=== PATIENT | female | born 1950 | race Caucasian/White ===

== ENCOUNTER 2018-07-26 11:10 | Emergency (ER) | payer MEDICARE, MEDICAID ==
--- OUTSIDE RECORDS SUMMARY | 2018-07-26 11:28 | XMS REPORT | Continuity of Care Document ---
:1950 External Reference #:[id number] Author Name Bola Bryan, N.Marisa. Address [address] [place] [address] Care Team Providers Name Role Phone Bola Bryan NIke Care Team Information Director [employer] Unavailable Payers Type Date Identification Numbers Payment Provider Subscriber Policy Number: [id number] [employer] Bárbara Chowdhury [place] PayID: [id number] [address] [address] [place] [address] Effective: 2015 Policy Number: Medicaid ### >12 Bárbara Chowdhury [place] [id number] PayID: [id number] [address] [place] [address] Advance Directives Description No Information Available Problems Date Description Provider Status Onset: 08/06/2010 Pure hypercholesterolemia Active Onset: 03/21/2015 Chronic obstructive lung disease Bola Bryan, N.P. Active Onset: 03/21/2015 Tobacco user Bola Bryan, N.P. Active Onset: 03/21/2015 Depressive disorder Bola Bryan, N.P. Active Onset: 03/21/2015 Anxiety Bola Bryan, N.P. Active Family History Date Family Member(s) Problem(s) Comments Father due to Heart Disease () Mother due to Stroke () Siblings 11 First Brother due to Accident, Motor Vehicle () Second Brother due to Accident, Motor Vehicle () First Sister due to Cancer, Cervix () Second Sister due to SC () Third Sister due to Cancer, Unspecified () - thyroid Fourth Sister due to Cancer, Kidney () Fifth Sister due to Cancer () Social History Type Date Description Comments Sex Unknown Marital Status Lives With Spouse Occupation Homemaker ETOH Use Rarely consumes alcohol Tobacco Use Start: Unknown Patient is a current smoker, smokes every 1 ppd day Smoking Status Reviewed: 12/07/17 Patient is a current smoker, smokes every 1 ppd day Allergies, Adverse Reactions, Alerts Description No Known Drug Allergies Medications Medication Date Status Form Strength Qnty SIG Indications Ordering Provider Fluoxetine HCL 08/05/ Active Capsules 40mg 30cap take one Irvin, 2015 s capsule Mashelle, by mouth N.P. every day Proair HFA 07/30/ Active Aerosol 108(90Base 8.500 2 puffs Irvin, 2014 ) mcg/Act gm four Mashelle, times a N.P. day as needed Lorazepam 10/23/ Active Tablets 1mg 90tab 1 by Irvin, 2014 s mouth Mashelle, three N.P. times a day please fill early for vacation Breo Ellipta 02/01/ Active Aerosol 100-25mcg/ 60uni Inhale Irvin, 2013 Inh ts One puff Mashelle, By Mouth N.P. Every Day Simvastatin 02/26/ Active Tablets 40mg 90tab 1 by Irvin, 2010 s mouth Mashelle, every day N.P. Oxybutynin 09/08/ Active Tablets 5mg 180ta 1 by Irvin 2010 bs mouth Mashelle, twice a N.P. day Acyclovir 08/06/ Active Tablets 400mg 180ta 1 by Irvin 2009 bs mouth Mashelle, twice a N.P. day Aspir-81 07/31/ Active Tablets DR 81mg 30tab 1 po qd Irvin 2009 s Mashelle, N.P. Shingrix 11/23/ Hx Suspension 50mcg Irvin, 2017 - Rec Mashelle, 12/07/ N.P. 2018 Pneumovax 23 07/26/ Hx Injection 25mcg/0.5M Irvin, 2016 - L Mashelle, 12/07/ N.P. 2018 Chantix 11/26/ Hx Tablets 1mg 60tab 1 by Irvin 2015 - s mouth Mashelle, 06/08/ twice a N.P. 2016 day Chantix 10/28/ Hx Tablets 0.5mg X 11 1tabs as Irvin, Starting Month 2015 - & 1 mg X directed Bola Spike N.P. 2016 Levofloxacin 08/29/ Hx Tablets 500mg 10tab 1 by Irvin, 2016 - s mouth Mashelle, 10/28/ every day N.P. 2016 x 10 days Albuterol 07/30/ Hx Syrup 2mg/5ML 2 puffs Irvin, Sulfate 2014 - four Mashelle, 07/30/ times a N.P. 2014 day Zoloft 10/23/ Hx Tablets 100mg 90tab 1 by Irvin, 2015 - s mouth Mashelle, 08/05/ every day N.P. 2015 Alprazolam 09/29/ Hx Tablets 1mg 60tab 1 by Irvin, 2014 - s mouth Mashelle, 10/23/ three N.P. 2015 times a day Ibuprofen 09/29/ Hx Tablets 600mg 30tab 1 po tid Irvin, 2014 - s with food Bola, 06/08/ N.P. 2015 Diazepam 02/14/ Hx Tablets 5mg 90tab 1 po q hs Irvin, 2012 - s Mashelle, 09/29/ N.P. 2014 Ambien 10/17/ Hx Tablets 5mg 30tab 1 po q hs Irvin, 2012 - s prn Mashelle, 11/05/ N.P. 2014 Keflex 03/29/ Hx Capsules 500mg 28cap 1 po qid Irvin, 2011 - s x 7 days Mashelle, 04/07/ N.P. 2011 Hydroxyzine 03/04/ Hx Capsules 50mg 15cap 1 po tid [facility], Pamoate 2011 - s prn itch Mashelle, 03/29/ N.P. 2011 Medrol Dosepak 02/22/ Hx Tablets 4mg 1PK as Irvin, 2011 - directed Mashelle, 03/04/ N.P. 2011 Fluticasone 02/22/ Hx Cream 0.05% 30gm apply to Irvin Propionate 2011 - rash bid Mashelle, 02/19/ N.P. 2014 Chantix 02/01/ Hx Tablets 1mg 60tab 1 po bid Irvin, 2012 - s Mashelle, 10/04/ N.P. 2012 Spiriva 12/07/ Hx Capsules 18mcg 30cap 1 inhale [facility]vin Handihaler 2011 - s qd Mashelle, 02/15/ N.P. 2013 Chantix 11/24/ Hx Tablets 0.5mg 30tab 1 po qd Irvin, 2011 - s Mashelle, 02/01/ N.P. 2012 Proventil HFA 11/17/ Hx Aerosol 108(90Base 1unit 2 puffs Irvin, 2011 - ) mcg/ac s four Mashelle, 07/30/ times a N.P. 2015 day Chantix 08/18/ Hx Tablets 1mg 60tab 1 po bid Irvin, 2010 - s [place], 11/24/ N.P. 2011 Wellbutrin XL 07/28/ Hx Tablets ER 150mg 30tab 1 po qd Irvin, 2010 - 24HR s [place], 08/18/ N.P. 2010 Chantix Starter 07/28/ Hx #1Pack 1Pack as Irvin, Pack 2010 - directed Mashelle, 08/18/ N.P. 2010 Simvastatin 02/26/ Hx Tablets 40mg take one Irvin, 2010 - tablet by Bola, 02/26/ mouth at N.P. 2010 bedtime Zoloft 11/12/ Hx Tablets 50mg 90tab 1 by Irvin, 2010 - s mouth Mashelle, 10/23/ every day N.P. 2014 Oxybutynin 08/06/ Hx Tablets 5mg 90tab 1 po qd [place], Chloride 2009 - s Mashelle, 08/06/ N.P. 2009 Alendronate 08/06/ Hx Tablets 70mg 12tab 1 po q [place], Sodium 2009 - s week Masbecky, 08/31/ N.P. 2017 Xanax 08/06/ Hx Tablets 0.5mg 30tab 1 po tid Irvin, 2009 - s [place], 10/17/ N.P. 2013 Oxybutynin 08/06/ Hx Tablets ER 10mg 90tab 1 po qd [place], Chloride ER 2009 - 24HR s Mashelle, 09/08/ N.P. 2010 Amitriptyline 07/31/ Hx Tablets 10mg 30tab 1 po qhs [place], HCL 2009 - s Bola, 08/06/ N.P. 2009 Simvastatin 07/31/ Hx Tablets 80mg 90tab 1 po qd Irvin 2009 - s Bola, 02/26/ N.P. 2010 Citalopram 07/31/ Hx Tablets 40mg 90tab 1 by Dilip Bryanbromide 2009 - mouth Bola, 10/23/ every day N.P. 2014 Immunizations CPT Code Status Date Vaccine Lot # [id number] Given 05/09/2018 Influenza Vac, 3 Yrs & Older, Quadrivalent, [id number] [place] [address] Given 07/26/2017 Pneumococcal 23 Immunization Adult Or Immunosuppressed Patient 63072 Given 07/26/2017 Influenza Vac, 3 Yrs & Older, Quadrivalent, [id number] Split, Im Use 07747 Given 08/05/2016 Tdap (Adacel) Ages 7 And Above Only [id number] 28069 Given 06/08/2016 Influenza Vac, 3 Yrs & Older, Quadrivalent, [id number] Split, [place] Use 01395 Given 06/08/2016 Prevnar 13 Pneumococal Conjugate Vaccine [id number] 92280 Given 07/24/2015 Influenza Vac, 3 Yrs & Older, Quadrivalent, Split, Im Use Q2038 Given 05/31/2014 Fluzone Trivalent Immunization [id number] Q2038 Given 07/27/2013 Fluzone Trivalent Immunization 71827 Given 06/30/2012 Pneumococcal 23 Immunization Adult Or Immunosuppressed Patient Q2038 Given 06/16/2012 Fluzone Trivalent Immunization [id number] Q2038 Given 06/02/2011 Fluzone Trivalent Immunization [id number] 53490 Given 08/06/2010 Afluria Or Fluvirin Flu Vac Intramuscular [id number] Vital Signs Date Vital Result Comment 07/25/2018 3:02pm Body Temperature 97.7 F Weight 104.50 lb Heart Rate 104 /min BP Systolic 142 mmHg BP Diastolic 90 mmHg O2 % BldC Oximetry 96 % 05/09/2018 10:53am Body Temperature 97.7 F Weight 106.25 lb Heart Rate 83 /min BP Systolic 134 mmHg BP Diastolic 82 mmHg O2 % BldC Oximetry 93 % 12/07/2017 1:25pm Weight 106.00 lb 12/07/2017 1:05pm Body Temperature 98.1 F Weight 106.00 lb Heart Rate 78 /min BP Systolic 138 mmHg BP Diastolic 84 mmHg Height 59.5 inches 4'11.50" O2 % BldC Oximetry 94 % BMI (Body Mass Index) 21.0 kg/m2 07/26/2017 10:29am Body Temperature 97.5 F Weight 103.38 lb Heart Rate 83 /min BP Systolic 134 mmHg BP Diastolic 87 mmHg O2 % BldC Oximetry 94 % 03/16/2017 1:29pm Body Temperature 98.1 F Weight 99.38 lb Heart Rate 74 /min BP Systolic 146 mmHg BP Diastolic 77 mmHg O2 % BldC Oximetry 97 % 12/04/2016 11:12am Body Temperature 97.2 F Weight 104.00 lb Heart Rate 99 /min BP Systolic 129 mmHg BP Diastolic 78 mmHg Height 59 inches 4'11" O2 % BldC Oximetry 94 % BMI (Body Mass Index) 21.0 kg/m2 08/31/2016 11:42am Body Temperature 97.7 F Weight 108.00 lb Heart Rate 83 /min BP Systolic 141 mmHg BP Diastolic 72 mmHg O2 % BldC Oximetry 95 % 08/05/2016 10:34am Body Temperature 97.7 F Weight 109.00 lb Heart Rate 90 /min BP Systolic 127 mmHg BP Diastolic 77 mmHg O2 % BldC Oximetry 95 % 06/08/2016 10:32am Body Temperature 97.3 F Weight 111.25 lb Heart Rate 80 /min BP Systolic 126 mmHg BP Diastolic 72 mmHg O2 % BldC Oximetry 96 % 01/28/2016 10:44am Body Temperature 97.7 F Weight 111.50 lb Heart Rate 84 /min BP Systolic 127 mmHg BP Diastolic 76 mmHg O2 % BldC Oximetry 95 % 10/29/2015 10:47am Body Temperature 97.9 F Weight 112.38 lb Heart Rate 97 /min 78-After Treatment BP Systolic 149 mmHg BP Diastolic 82 mmHg O2 % BldC Oximetry 93 % 91-After Treatment 08/29/2015 10:52am Body Temperature 97.9 F Weight 111.25 lb Heart Rate 93 /min BP Systolic 127 mmHg BP Diastolic 80 mmHg O2 % BldC Oximetry 96 % 07/24/2015 10:03am Body Temperature 97.7 F Weight 113.00 lb Heart Rate 86 /min BP Systolic 149 mmHg BP Diastolic 86 mmHg O2 % BldC Oximetry 96 % 03/21/2015 10:37am Body Temperature 97.9 F Weight 112.12 lb Heart Rate 86 /min BP Systolic 134 mmHg BP Diastolic 81 mmHg O2 % BldC Oximetry 95 % 02/19/2015 9:56am Body Temperature 97.3 F Weight 112.38 lb Heart Rate 84 /min BP Systolic 119 mmHg BP Diastolic 77 mmHg O2 % BldC Oximetry 96 % 12/06/2014 1:58pm Body Temperature 97.9 F Weight 114.00 lb Heart Rate 80 /min BP Systolic 118 mmHg BP Diastolic 77 mmHg O2 % BldC Oximetry 97 % 11/05/2014 11:32am Body Temperature 96.5 F Weight 112.25 lb Heart Rate 89 /min BP Systolic 120 mmHg BP Diastolic 76 mmHg O2 % BldC Oximetry 95 % 10/23/2014 1:10pm Weight 117.38 lb Heart Rate 77 /min BP Systolic 132 mmHg BP Diastolic 85 mmHg O2 % BldC Oximetry 98 % 05/31/2014 2:37pm Body Temperature 97.5 F Weight 121.50 lb Heart Rate 78 /min BP Systolic 131 mmHg BP Diastolic 78 mmHg O2 % BldC Oximetry 96 % 05/02/2014 10:28am Body Temperature 98.4 F Weight 125.50 lb Heart Rate 85 /min BP Systolic 144 mmHg BP Diastolic 84 mmHg Respiratory Rate 20 /min 02/15/2014 10:34am Body Temperature 97.5 F Weight 127.38 lb Heart Rate 79 /min BP Systolic 130 mmHg BP Diastolic 83 mmHg O2 % BldC Oximetry 95 % 02/01/2014 10:56am Body Temperature 98.4 F Weight 132.38 lb Heart Rate 95 /min BP Systolic 128 mmHg BP Diastolic 76 mmHg O2 % BldC Oximetry 96 % 10/25/2013 11:04am Body Temperature 96.1 F Weight 140.25 lb Heart Rate 107 /min BP Systolic 118 mmHg BP Diastolic 73 mmHg O2 % BldC Oximetry 95 % 09/29/2013 9:18am Body Temperature 97.6 F Weight 142.12 lb Heart Rate 74 /min BP Systolic 120 mmHg BP Diastolic 60 mmHg O2 % BldC Oximetry 94 % 07/27/2013 11:05am Body Temperature 98.2 F Weight 138.00 lb Heart Rate 81 /min BP Systolic 128 mmHg BP Diastolic 72 mmHg O2 % BldC Oximetry 97 % 02/14/2013 1:57pm Body Temperature 96.1 F Weight 139.00 lb Heart Rate 80 /min BP Systolic 124 mmHg BP Diastolic 70 mmHg O2 % BldC Oximetry 95 % 10/04/2012 10:12am Body Temperature 96.2 F Weight 141.00 lb Heart Rate 83 /min BP Systolic 112 mmHg BP Diastolic 62 mmHg O2 % BldC Oximetry 93 % 06/16/2012 8:42am Body Temperature 97.7 F Weight 142.25 lb Heart Rate 94 /min BP Systolic 124 mmHg BP Diastolic 72 mmHg O2 % BldC Oximetry 96 % 04/07/2012 9:54am Body Temperature 97.3 F Weight 144.38 lb Heart Rate 78 /min BP Systolic 132 mmHg BP Diastolic 70 mmHg O2 Saturation Level with Exercise 97 % 03/29/2012 1:49pm Body Temperature 98.0 F Weight 144.25 lb Heart Rate 84 /min BP Systolic 136 mmHg BP Diastolic 89 mmHg O2 % BldC Oximetry 93 % 03/04/2012 9:10am Body Temperature 97.9 F Weight 147.12 lb Heart Rate 70 /min BP Systolic 145 mmHg BP Diastolic 78 mmHg O2 % BldC Oximetry 94 % 02/23/2012 9:52am Body Temperature 97.5 F Weight 142.50 lb Heart Rate 83 /min BP Systolic 160 mmHg BP Diastolic 85 mmHg O2 % BldC Oximetry 95 % 02/02/2012 8:56am Body Temperature 97.7 F Weight 147.00 lb Heart Rate 81 /min BP Systolic 137 mmHg BP Diastolic 86 mmHg O2 % BldC Oximetry 92 % 12/08/2011 9:50am Body Temperature 97.5 F Weight 143.50 lb Heart Rate 79 /min BP Systolic 134 mmHg BP Diastolic 85 mmHg O2 % BldC Oximetry 96 % 11/25/2011 1:06pm Body Temperature 97.5 F Weight 142.00 lb Heart Rate 70 /min BP Systolic 111 mmHg BP Diastolic 70 mmHg O2 Saturation Level with Exercise 94 % 11/18/2011 1:06pm Body Temperature 97.5 F Weight 141.38 lb Heart Rate 76 /min BP Systolic 129 mmHg BP Diastolic 75 mmHg O2 Saturation Level with Exercise 95 % 11/03/2011 9:04am Body Temperature 97.4 F Weight 149.00 lb Heart Rate 88 /min BP Systolic 120 mmHg BP Diastolic 80 mmHg O2 Saturation Level with Exercise 95 % 08/18/2011 10:44am Body Temperature 98.2 F Weight 140.00 lb Heart Rate 62 /min BP Systolic 110 mmHg BP Diastolic 63 mmHg O2 Saturation Level with Exercise 94 % 08/18/2011 10:43am Weight 140.00 lb 07/28/2011 10:31am Body Temperature 97.8 F Weight 138.00 lb Heart Rate 80 /min BP Systolic 130 mmHg BP Diastolic 74 mmHg O2 % BldC Oximetry 95 % 06/02/2011 8:48am Body Temperature 97.4 F Weight 138.00 lb Heart Rate 74 /min BP Systolic 138 mmHg BP Diastolic 72 mmHg O2 % BldC Oximetry 96 % 02/26/2011 10:56am Weight 135.00 lb Heart Rate 68 /min BP Systolic 132 mmHg BP Diastolic 62 mmHg O2 % BldC Oximetry 95 % 11/27/2010 9:04am Body Temperature 98.4 F Weight 142.00 lb Heart Rate 79 /min BP Systolic 102 mmHg BP Diastolic 70 mmHg O2 % BldC Oximetry 93 % 11/12/2010 3:43pm Weight 138.00 lb Heart Rate 76 /min BP Systolic 128 mmHg BP Diastolic 70 mmHg O2 % BldC Oximetry 93 % 08/18/2010 3:18pm Weight 146.00 lb Heart Rate 76 /min BP Systolic 138 mmHg BP Diastolic 70 mmHg Height 59 inches 4'11" O2 % BldC Oximetry 92 % BMI (Body Mass Index) 29.5 kg/m2 08/06/2010 1:17pm Body Temperature 97.6 F Weight 143.00 lb Heart Rate 69 /min BP Systolic 102 mmHg BP Diastolic 60 mmHg Respiratory Rate 20 /min Height 59 inches 4'11" O2 % BldC Oximetry 94 % BMI (Body Mass Index) 28.9 kg/m2 Results Test Date Facility Test Result H/L Range Note Comprehensive Met Panel-[facility] 12/07/2017 [facility] Sodium 136 mmol/L 135- 146 1, 2 Potassium 4.4 mmol/L 3.5-5.2 Chloride# 98 mmol/L 97-110 3 Carbon Dioxide 28 mmol/L 24-34 Glucose 100 mg/dL 70-105 BUN 8 mg/dL 6-26 Creatinine 0.7 mg/dL 0.5-1.4 Calcium 9.8 mg/dL 8.5-10.2 Total Protein 7.5 g/dL 6.0-8.0 Albumin 4.6 g/dL 3.6-4.9 Globulin 2.9 g/dL 2.0-3.5 A/G Ratio 1.6 Ratio 1.0-2.2 Total Bilirubin 0.6 mg/dL 0.1-1.3 Alkaline Phosphatase 79 U/L 24-140 Alt 10 U/L 3-42 Ast 13 U/L 8-42 Breanne Egfr >60 >60 4 Non Breanne Egfr >60 >60 5 Anion Gap 10 mmol/L 5-15 6 Lipid 12/07/2017 [facility] Cholesterol 238 mg/dL High 50-199 Triglycerides 127 mg/dL 30-200 HDL 81 mg/dL 35-85 7 Chol/ HDL Ratio 2.9 ratio Low 3.7-5.6 VLDL 25 mg/dL 2-29 LDL (Calc) 131 mg/dL High 20-99 8 Lipid 03/16/2017 [facility] Cholesterol 214 mg/dL High 50-199 9 Triglycerides 125 mg/dL 30-200 HDL 68 mg/dL 35-85 10 Chol/ HDL Ratio 3.1 ratio Low 3.7-5.6 VLDL 25 mg/dL 2-29 LDL (Calc) 121 mg/dL High 20-99 11 Comprehensive Met Panel-[facility] 03/16/2017 [facility] Sodium 138 mmol/L 135- 146 12 Potassium 4.7 mmol/L 3.5-5.2 Chloride# 100 mmol/L 97-110 13 Carbon Dioxide 30 mmol/L 24-34 Glucose 98 mg/dL 70-105 BUN 7 mg/dL 6-26 Creatinine 0.7 mg/dL 0.5-1.4 Calcium 9.7 mg/dL 8.5-10.2 Total Protein 7.2 g/dL 6.0-8.0 Albumin 4.4 g/dL 3.6-4.9 Globulin 2.8 g/dL 2.0-3.5 A/G Ratio 1.6 Ratio 1.0-2.2 Total Bilirubin 0.4 mg/dL 0.1-1.3 Alkaline Phosphatase 91 U/L 24-140 Alt 11 U/L 3-42 Ast 12 U/L 8-42 Breanne Egfr >60 >60 14 Non Breanne Egfr >60 >60 15 Anion Gap 13 mmol/L 7-16 16 Laboratory test 03/16/2017 [facility] Hepatitis C Virus NONREACTIVE Nonreactive finding Antibody CBC With Auto Diff 03/16/2017 [facility] WBC 7.4 K/uL 4.1-11.0 RBC 5.03 M/uL 4.00-5.40 Hemoglobin 16.1 gm/dL High 12.0-16.0 Hematocrit 48.1 % High 36.0-47.0 MCV 95.6 fL 80.0-97.0 MCH 32.1 pg High 27.0-32.0 MCHC 33.5 g/dL 32.0-36.0 RDW 14.1 % 11.5-14.5 PLT Count 217 K/ul 140-400 Neutrophil 69.7 % 35.0-75.0 Lymphocyte 21.2 % 16.0-52.0 Monocyte 7.0 % 2.0-10.0 Eosinophil 0.9 % 0.0-5.0 Basophil 1.2 % 0.0-4.0 Abs Neutrophils 5.2 K/uL 2.1-8.0 Abs Lymphocytes 1.6 K/uL 0.8-5.5 Abs Monocytes 0.5 K/uL 0.1-1.0 Abs Eosinophils 0.1 K/uL 0.0-0.5 Abs Basophils 0.1 K/uL 0.0-0.3 Laboratory test finding 08/31/2016 [facility] Hemoglobin A1c 5.8 % 4.1-5.9 Comprehensive Metabolic 08/31/2016 [facility] Sodium 137 mmol/L 134-142 (CMP) Potassium 4.8 mmol/L 3.5-5.2 Chloride 102 mmol/L 97-109 Carbon Dioxide 29 mmol/L 24-34 Glucose 104 mg/dL 70-105 BUN 10 mg/dL 6-26 Creatinine 0.7 mg/dL 0.5-1.4 Calcium 9.7 mg/dL 8.5-10.2 Total Protein 7.1 g/dL 6.0-8.0 Albumin 4.5 g/dL 3.6-4.9 Globulin 2.6 g/dL 2.0-3.5 A/G Ratio 1.7 Ratio 1.0-2.2 Total Bilirubin 0.5 mg/dL 0.1-1.3 Alkaline Phosphatase 71 U/L 24-140 Alt 8 U/L 3-42 Ast 12 U/L 8-42 Anion Gap 11 mmol/L 6-14 Breanne Egfr >60 >60 17 Non Breanne Egfr >60 >60 18 Lipid 08/31/2016 [facility] Cholesterol 172 mg/dL 50-199 Triglycerides 84 mg/dL 30-200 HDL 72 mg/dL 35-85 19 Chol/ HDL Ratio 2.4 ratio Low 3.7-5.6 VLDL 17 mg/dL 2-29 LDL (Calc) 83 mg/dL 20-99 20 Lipid 06/08/2016 [facility] Cholesterol 204 mg/dL High 50-199 Triglycerides 90 mg/dL 30-200 HDL 62 mg/dL 35-85 21 Chol/ HDL Ratio 3.3 ratio Low 3.7-5.6 VLDL 18 mg/dL 2-29 LDL (Calc) 124 mg/dL High 20-99 22 Comprehensive Metabolic (CMP) 06/08/2016 [facility] Sodium 136 mmol/L 134- 142 Potassium 4.8 mmol/L 3.5-5.2 Chloride 103 mmol/L 97-109 Carbon Dioxide 26 mmol/L 24-34 Glucose 94 mg/dL 70-105 BUN 11 mg/dL 6-26 Creatinine 0.8 mg/dL 0.5-1.4 Calcium 9.7 mg/dL 8.5-10.2 Total Protein 6.7 g/dL 6.0-8.0 Albumin 4.1 g/dL 3.6-4.9 Globulin 2.6 g/dL 2.0-3.5 A/G Ratio 1.6 Ratio 1.0-2.2 Total Bilirubin 0.4 mg/dL 0.1-1.3 Alkaline Phosphatase 79 U/L 24-140 Alt 12 U/L 3-42 Ast 12 U/L 8-42 Anion Gap 12 mmol/L 6-14 Breanne Egfr >60 >60 23 Non Breanne Egfr >60 >60 24 Laboratory test finding 06/08/2016 [facility] Hemoglobin A1c 5.9 % 4.1-5.9 Laboratory test finding 01/28/2016 [facility] Hemoglobin A1c 6.0 % High 4.1- 5.9 25 Comprehensive Metabolic 01/28/2016 [facility] Sodium 139 mmol/L 134-142 ([facility]) Potassium 4.8 mmol/L 3.5-5.2 Chloride 100 mmol/L 97-109 Carbon Dioxide 31 mmol/L 24-34 Glucose 93 mg/dL 70-105 BUN 11 mg/dL 6-26 Creatinine 0.7 mg/dL 0.5-1.4 Calcium 9.5 mg/dL 8.5-10.2 Total Protein 7.0 g/dL 6.0-8.0 Albumin 4.3 g/dL 3.6-4.9 Globulin 2.7 g/dL 2.0-3.5 A/G Ratio 1.6 Ratio 1.0-2.2 Total Bilirubin 0.5 mg/dL 0.1-1.3 Alkaline Phosphatase 74 U/L 24-140 Alt 9 U/L 3-42 Ast 13 U/L 8-42 Anion Gap 13 mmol/L 6-14 Breanne Egfr >60 >60 26 Non Breanne Egfr >60 >60 27 Lipid 01/28/2016 [facility] Cholesterol 180 mg/dL 50-199 Triglycerides 105 mg/dL 30-200 HDL 60 mg/dL 35-85 28 Chol/ HDL Ratio 3.0 ratio Low 3.7-5.6 VLDL 21 mg/dL 2-29 LDL (Calc) 99 mg/dL 20-99 29 Laboratory test finding 07/29/2015 [facility] Hemoglobin A1c 6.0 % High 4.1- 5.9 30 Comprehensive Metabolic 07/24/2015 [facility] Sodium 139 mmol/L 134-142 31 (CMP) Potassium 4.9 mmol/L 3.5-5.2 Chloride 103 mmol/L 97-109 Carbon Dioxide 31 mmol/L 24-34 Glucose 115 mg/dL High 70-105 BUN 10 mg/dL 6-26 Creatinine 0.8 mg/dL 0.5-1.4 Calcium 9.7 mg/dL 8.5-10.2 Total Protein 6.7 g/dL 6.0-8.0 Albumin 4.2 g/dL 3.6-4.9 Globulin 2.5 g/dL 2.0-3.5 A/G Ratio 1.7 Ratio 1.0-2.2 Total Bilirubin 0.4 mg/dL 0.1-1.3 Alkaline Phosphatase 67 U/L 24-140 Alt 11 U/L 3-42 Ast 14 U/L 8-42 Anion Gap 10 mmol/L 6-14 Breanne Egfr >60 >60 32 Non Breanne Egfr >60 >60 33 Lipid 07/24/2015 [facility] Cholesterol 191 mg/dL 50-199 Triglycerides 113 mg/dL 30-200 HDL 66 mg/dL 35-85 34 Chol/ HDL Ratio 2.9 ratio Low 3.7-5.6 VLDL 23 mg/dL 2-29 LDL (Calc) 102 mg/dL High 20-99 35 CBC With Auto Diff 07/24/2015 [facility] WBC 8.4 K/uL 4.1-11.0 RBC 4.76 M/uL 4.00-5.40 Hemoglobin 15.3 gm/dL 12.0-16.0 Hematocrit 46.6 % 36.0-47.0 MCV 97.9 fL High 80.0-97.0 MCH 32.2 pg High 27.0-32.0 MCHC 32.9 g/dL 32.0-36.0 RDW 13.1 % 11.5-14.5 PLT Count 177 K/ul 140-400 Neutrophil 68.4 % 35.0-75.0 Lymphocyte 22.9 % 16.0-52.0 Monocyte 6.8 % 2.0-10.0 Eosinophil 0.8 % 0.0-5.0 Basophil 1.1 % 0.0-4.0 Abs Neutrophils 5.7 K/uL 2.1-8.0 Abs Lymphocytes 1.9 K/uL 0.8-5.5 Abmon 0.6 K/uL 0.1-1.0 Abs Eosinophils 0.1 K/uL 0.0-0.5 Abs Basophils 0.1 K/uL 0.0-0.3 Laboratory test finding 07/24/2015 [facility] TSH 1.77 uIU/mL 0.35-4.94 CBC With Auto Diff 02/01/2014 [facility] WBC 7.4 K/uL 4.1-11.0 36 RBC 5.09 M/uL 4.00-5.40 Hemoglobin 16.1 gm/dL High 12.0-16.0 Hematocrit 47.5 % High 36.0-47.0 MCV 93.3 fL 80.0-97.0 MCH 31.7 pg 27.0-32.0 MCHC 34.0 g/dL 32.0-36.0 RDW 13.6 % 11.5-14.5 PLT Count 181 K/ul 140-400 Neutrophil 70.2 % 35.0-75.0 Lymphocyte 20.5 % 16.0-52.0 Monocyte 7.4 % 2.0-10.0 Eosinophil 0.9 % 0.0-5.0 Basophil 1.0 % 0.0-4.0 Abs Neutrophils 5.2 K/uL 2.1-8.0 Abs Lymphocytes 1.5 K/uL 0.8-5.5 Abmon 0.5 K/uL 0.1-1.0 Abs Eosinophils 0.1 K/uL 0.0-0.5 Abs Basophils 0.1 K/uL 0.0-0.3 Comprehensive Metabolic (CMP) 02/01/2014 [facility] Sodium 140 mmol/L 134- 142 Potassium 4.6 mmol/L 3.5-5.2 Chloride 103 mmol/L 97-109 Carbon Dioxide 28 mmol/L 24-34 Glucose 106 mg/dL High 70-105 BUN 12 mg/dL 6-26 Creatinine 0.8 mg/dL 0.5-1.4 Calcium 9.8 mg/dL 8.5-10.2 Total Protein 7.0 g/dL 6.0-8.0 Albumin 4.5 g/dL 3.6-4.9 Globulin 2.5 g/dL 2.0-3.5 A/G Ratio 1.8 Ratio 1.0-2.2 Total Bilirubin 0.5 mg/dL 0.1-1.3 Alkaline Phosphatase 81 U/L 24-140 Alt 12 U/L 3-42 Ast 14 U/L 8-42 Anion Gap 14 mmol/L 6-14 Breanne Egfr >60 >60 37 Non Breanne Egfr >60 >60 38 Lipid 02/01/2014 [facility] Cholesterol 177 mg/dL 50-199 Triglycerides 101 mg/dL 30-200 HDL 62 mg/dL 35-85 39 Chol/ HDL Ratio 2.9 ratio Low 3.7-5.6 VLDL 20 mg/dL 2-29 LDL (Calc) 95 mg/dL 20-99 40 Lipid 07/27/2013 [facility] Cholesterol 182 mg/dL 50-199 41 Triglycerides 100 mg/dL 30-200 HDL 53 mg/dL 35-85 42 Chol/ HDL Ratio 3.4 ratio Low 3.7-5.6 VLDL 20 mg/dL 2-29 LDL (Calc) 109 mg/dL High 20-99 43 Comprehensive Metabolic (CMP) 07/27/2013 [facility] Sodium 139 mmol/L 134- 142 Potassium 5.0 mmol/L 3.5-5.2 Chloride 102 mmol/L 97-109 Carbon Dioxide 31 mmol/L 24-34 Glucose 119 mg/dL High 70-105 BUN 13 mg/dL 6-26 Creatinine 0.8 mg/dL 0.5-1.4 Calcium 9.6 mg/dL 8.5-10.2 Total Protein 7.3 g/dL 6.0-8.0 Albumin 4.7 g/dL 3.6-4.9 Globulin 2.6 g/dL 2.0-3.5 A/G Ratio 1.8 Ratio 1.0-2.2 Total Bilirubin 0.5 mg/dL 0.1-1.3 Alkaline Phosphatase 78 U/L 24-140 Alt 13 U/L 3-42 Ast 14 U/L 8-42 Anion Gap 11 mmol/L 6-14 Breanne Egfr >60 >60 44 Non Breanne Egfr >60 >60 45 CBC With Auto Diff 07/27/2013 [facility] WBC 6.8 K/uL 4.1-11.0 RBC 4.93 M/uL 4.00-5.40 Hemoglobin 15.9 gm/dL 12.0-16.0 Hematocrit 45.9 % 36.0-47.0 MCV 93.1 fL 80.0-97.0 MCH 32.2 pg High 27.0-32.0 MCHC 34.6 g/dL 32.0-36.0 RDW 13.8 % 11.5-14.5 PLT Count 120 K/ul Low 140-400 Neutrophil 61.3 % 35.0-75.0 Lymphocyte 29.2 % 16.0-52.0 Monocyte 7.8 % 2.0-10.0 Eosinophil 1.0 % 0.0-5.0 Basophil 0.7 % 0.0-4.0 Abs Neutrophils 4.1 K/uL 2.1-8.0 Abs Lymphocytes 2.0 K/uL 0.8-5.5 Abmon 0.5 K/uL 0.1-1.0 Abs Eosinophils 0.1 K/uL 0.0-0.5 Abs Basophils 0.0 K/uL 0.0-0.3 Lipid Treatment 10/04/2012 [facility] Cholesterol 188 mg/dL 50-199 46 Triglycerides 82 mg/dL 30-200 HDL 53 mg/dL 35-85 47 Chol/ HDL Ratio 3.5 ratio Low 3.7-5.6 VLDL 16 mg/dL 2-29 LDL (Calc) 119 mg/dL 20-129 48 Non HDL Cholesterol 135 mg/dL High 20-129 49 Alt 16 U/L 3-42 Ast 13 U/L 8-42 CBC With Auto Diff 06/16/2012 [facility] WBC 8.9 K/uL 4.1-11.0 50 RBC 4.71 M/uL 4.00-5.40 Hemoglobin 15.2 gm/dL 12.0-16.0 Hematocrit 45.4 % 36.0-47.0 MCV 96.4 fL 80.0-97.0 MCH 32.2 pg High 27.0-32.0 MCHC 33.5 g/dL 32.0-36.0 RDW 13.4 % 11.5-14.5 PLT Count 103 K/ul Low 140-400 Neutrophil 69.1 % 35.0-75.0 Lymphocyte 22.9 % 16.0-52.0 Monocyte 5.9 % 2.0-10.0 Eosinophil 1.4 % 0.0-5.0 Basophil 0.7 % 0.0-4.0 Abs Neutrophils 6.1 K/uL 2.1-8.0 Abs Lymphocytes 2.0 K/uL 0.8-5.5 Abs Monocytes 0.5 K/uL 0.1-1.0 Abs Eosinophils 0.1 K/uL 0.0-0.5 Abs Basophils 0.1 K/uL 0.0-0.3 Lipid 06/16/2012 [facility] Cholesterol 173 mg/dL 50-199 Triglycerides 133 mg/dL 30-200 HDL 49 mg/dL 35-85 51 Chol/ HDL Ratio 3.5 ratio Low 3.7-5.6 VLDL 27 mg/dL 2-29 LDL (Calc) 97 mg/dL 20-129 52 Comprehensive Metabolic (CMP) 06/16/2012 [facility] Sodium 139 mmol/L 134- 142 Potassium 5.5 No visible h <SEE NOTE> mmol/L High 3.5-5.2 53 Chloride 102 mmol/L 97-109 Carbon Dioxide 32 mmol/L 24-34 Glucose 97 mg/dL 70-105 BUN 15 mg/dL 6-26 Creatinine 0.9 mg/dL 0.5-1.4 Calcium 9.7 mg/dL 8.5-10.2 Total Protein 7.1 g/dL 6.0-8.0 Albumin 4.6 g/dL 3.6-4.9 Globulin 2.5 g/dL 2.0-3.5 A/G Ratio 1.8 Ratio 1.0-2.2 Total Bilirubin 0.5 mg/dL 0.1-1.3 Alkaline Phosphatase 84 U/L 24-140 Alt 13 U/L 3-42 Ast 13 U/L 8-42 Anion Gap 11 mmol/L 6-14 Breanne Egfr >60 >60 54 Non Breanne Egfr >60 >60 55 Lipid Treatment 01/28/2012 [facility] Cholesterol 181 mg/dL 50-199 56 Triglycerides 122 mg/dL 30-200 HDL 60 mg/dL 35-85 57 Chol/ HDL Ratio 3.0 ratio Low 3.7-5.6 VLDL 24 mg/dL 2-29 LDL (Calc) 97 mg/dL 20-129 58 Alt 20 U/L 3-42 Ast 17 U/L 8- Lipid Treatment 07/28/2011 [facility] Cholesterol 203 mg/dL High 50-199 Triglycerides 73 mg/dL 10-150 HDL 65 mg/dL 35-85 59 Chol/ HDL Ratio 3.1 ratio Low 3.7-5.6 VLDL 15 mg/dL 2-29 LDL (Calc) 123 mg/dL 20-129 60 Alt 20 U/L 5-45 Ast 21 U/L 12- Lipid Treatment 11/27/2010 [facility] Cholesterol 173 mg/dL 50-199 61 Triglycerides 73 mg/dL 10-150 HDL 61 mg/dL 35-85 62 Chol/ HDL Ratio 2.8 ratio Low 3.7-5.6 VLDL 15 mg/dL 2- LDL (Calc) 97 mg/dL 20-129 63 Alt 22 U/L 5-45 Ast 20 U/L 12-40 Lipid TX Panel 08/06/2010 [facility] (Do not Use) Ast 24 U/L 12-40 64 [facility] [place] [address] [phone] Alt 24 U/L 5-45 Cholesterol 178 mg/dL 50-199 Triglycerides 120 mg/dL 10-150 HDL 61 mg/dL 35-85 65 LDL (Calc) 93 mg/dL 20-129 66 Chol/HDL Ratio 2.9 Ratio Low 3.7-5.6 67 VLDL 24 mg/dL 2-29 CBC With Auto Diff 08/06/2010 [facility] (Do not Use) WBC 6.0 K/ul 4.0- 10.9 [facility] [place] [address] [phone] RBC 4.73 M/ul 4.20-5.40 Hemoglobin 16.1 GM/dl High 12.5-16.0 Hematocrit 46.1 % 36.0-47.0 MCV 97.4 FL High 80.0-97.0 MCH 34.0 pg High 27.0-31.0 MCHC 34.9 g/dL 32.0-36.0 RDW 13.4 % 11.5-14.5 Platelet Count 75 K/ul Low 140-440 Neutrophils 58.1 % 50-70 Lymphocytes 30.8 % 20-44 Monocytes 9.2 % High 2-9 Eosinophil 1.3 % 0-4 Basophil 0.6 % 0-2 Absolute Neutrophils 3.5 K/ul 2.05-7.63 Absolute Lymphocytes 1.8 K/ul 0.8-4.8 Absolute Monocytes 0.6 K/ul 0.1-1.0 Absolute Eosinophils 0.1 K/ul 0.1-0.5 Absolute Basophils 0.0 K/ul 0.0-0.3 Hematology Comment (Comm2) N/A Laboratory test 08/06/2010 [facility] (Do not Use) TSH 2.27 uIU/ml 0.34 -5.60 finding [facility] [place] [id number] [phone] 1 This sample is drawn by:DL/TWIST TESTER 2 Updated reference range on new analyzer 3 Updated reference range on new analyzer 4 Concerning GFR Guidelines for Americans: Normal function or mild renal disease, if clinically at risk: >/=60 mL/min Moderately decreased: 30-59 Severely decreased: 15-29 Renal failure: <15 5 Concerning GFR Guidelines: Normal function or mild renal disease, if clinically at risk: >/=60 mL/min Moderately decreased: 30-59 Severely decreased: 15-29 Renal failure: <15 Glomerular Filtration Rate (GFR) is estimated based on the MDRD equation, which assumes a steady state for creatinine as recommended by the National Kidney Disease Education Program in conjunction with the National Institutes of Health and the National Kidney Foundation. Clinical conditions in which it may be necessary to measure GFR by using clearance methods include extremes of age and body size, severe malnutrition or obesity, diseases of skeletal muscle, paraplegia or quadriplegia, vegetarian diet, rapidly changing kidney function, and calculation of the dose of potentially toxic drugs that are excreted by the kidneys. 6 Updated Reference Range 7 Per NCEP ATP III Guidelines: Results lower than 40 mg/dL are suggestive of increased risk for coronary artery disease. Results > or=to 60 mg/dL are considered a negative risk factor. 8 Per NCEP ATP III Guidelines: Normal Population <130 Patients with medical conditions: CHD/DM Optimal: <100 Borderline high: 130-159 High: 160-189 Very high: >189 9 This sample is drawn by:JOLLY/DERRELL 10 Per NCEP ATP III Guidelines: Results lower than 40 mg/dL are suggestive of increased risk for coronary artery disease. Results > or=to 60 mg/dL are considered a negative risk factor. 11 Per NCEP ATP III Guidelines: Normal Population <130 Patients with medical conditions: CHD/DM Optimal: <100 Borderline high: 130-159 High: 160-189 Very high: >189 12 Updated reference range on new analyzer 13 Updated reference range on new analyzer 14 Concerning GFR Guidelines for Americans: Normal function or mild renal disease, if clinically at risk: >/=60 mL/min Moderately decreased: 30-59 Severely decreased: 15-29 Renal failure: <15 15 Concerning GFR Guidelines: Normal function or mild renal disease, if clinically at risk: >/=60 mL/min Moderately decreased: 30-59 Severely decreased: 15-29 Renal failure: <15 Glomerular Filtration Rate (GFR) is estimated based on the MDRD equation, which assumes a steady state for creatinine as recommended by the National Kidney Disease Education Program in conjunction with the National Institutes of Health and the National Kidney Foundation. Clinical conditions in which it may be necessary to measure GFR by using clearance methods include extremes of age and body size, severe malnutrition or obesity, diseases of skeletal muscle, paraplegia or quadriplegia, vegetarian diet, rapidly changing kidney function, and calculation of the dose of potentially toxic drugs that are excreted by the kidneys. 16 Updated reference range on new analyzer 17 Concerning GFR Guidelines for Americans: Normal function or mild renal disease, if clinically at risk: >/=60 mL/min Moderately decreased: 30-59 Severely decreased: 15-29 Renal failure: <15 18 Concerning GFR Guidelines: Normal function or mild renal disease, if clinically at risk: >/=60 mL/min Moderately decreased: 30-59 Severely decreased: 15-29 Renal failure: <15 Glomerular Filtration Rate (GFR) is estimated based on the MDRD equation, which assumes a steady state for creatinine as recommended by the National Kidney Disease Education Program in conjunction with the National Institutes of Health and the National Kidney Foundation. Clinical conditions in which it may be necessary to measure GFR by using clearance methods include extremes of age and body size, severe malnutrition or obesity, diseases of skeletal muscle, paraplegia or quadriplegia, vegetarian diet, rapidly changing kidney function, and calculation of the dose of potentially toxic drugs that are excreted by the kidneys. 19 Per NCEP ATP III Guidelines: Results lower than 40 mg/dL are suggestive of increased risk for coronary artery disease. Results > or=to 60 mg/dL are considered a negative risk factor. 20 Per NCEP ATP III Guidelines: Normal Population <130 Patients with medical conditions: CHD/DM Optimal: <100 Borderline high: 130-159 High: 160-189 Very high: >189 21 Per NCEP ATP III Guidelines: Results lower than 40 mg/dL are suggestive of increased risk for coronary artery disease. Results > or=to 60 mg/dL are considered a negative risk factor. 22 Per NCEP ATP III Guidelines: Normal Population <130 Patients with medical conditions: CHD/DM Optimal: <100 Borderline high: 130-159 High: 160-189 Very high: >189 23 Concerning GFR Guidelines for Americans: Normal function or mild renal disease, if clinically at risk: >/=60 mL/min Moderately decreased: 30-59 Severely decreased: 15-29 Renal failure: <15 24 Concerning GFR Guidelines: Normal function or mild renal disease, if clinically at risk: >/=60 mL/min Moderately decreased: 30-59 Severely decreased: 15-29 Renal failure: <15 Glomerular Filtration Rate (GFR) is estimated based on the MDRD equation, which assumes a steady state for creatinine as recommended by the National Kidney Disease Education Program in conjunction with the National Institutes of Health and the National Kidney Foundation. Clinical conditions in which it may be necessary to measure GFR by using clearance methods include extremes of age and body size, severe malnutrition or obesity, diseases of skeletal muscle, paraplegia or quadriplegia, vegetarian diet, rapidly changing kidney function, and calculation of the dose of potentially toxic drugs that are excreted by the kidneys. 25 This sample is drawn by:KD/JAVASCRIPT WEB DEVELOPER 26 Concerning GFR Guidelines for Americans: Normal function or mild renal disease, if clinically at risk: >/=60 mL/min Moderately decreased: 30-59 Severely decreased: 15-29 Renal failure: <15 27 Concerning GFR Guidelines: Normal function or mild renal disease, if clinically at risk: >/=60 mL/min Moderately decreased: 30-59 Severely decreased: 15-29 Renal failure: <15 Glomerular Filtration Rate (GFR) is estimated based on the MDRD equation, which assumes a steady state for creatinine as recommended by the National Kidney Disease Education Program in conjunction with the National Institutes of Health and the National Kidney Foundation. Clinical conditions in which it may be necessary to measure GFR by using clearance methods include extremes of age and body size, severe malnutrition or obesity, diseases of skeletal muscle, paraplegia or quadriplegia, vegetarian diet, rapidly changing kidney function, and calculation of the dose of potentially toxic drugs that are excreted by the kidneys. 28 Per NCEP ATP III Guidelines: Results lower than 40 mg/dL are suggestive of increased risk for coronary artery disease. Results > or=to 60 mg/dL are considered a negative risk factor. 29 Per NCEP ATP III Guidelines: Normal Population <130 Patients with medical conditions: CHD/DM Optimal: <100 Borderline high: 130-159 High: 160-189 Very high: >189 30 This sample is drawn by:JOLLY/DERRELL 31 This sample is drawn by:MARLIN/ITZ 32 Concerning GFR Guidelines for Americans: Normal function or mild renal disease, if clinically at risk: >/=60 mL/min Moderately decreased: 30-59 Severely decreased: 15-29 Renal failure: <15 33 Concerning GFR Guidelines: Normal function or mild renal disease, if clinically at risk: >/=60 mL/min Moderately decreased: 30-59 Severely decreased: 15-29 Renal failure: <15 Glomerular Filtration Rate (GFR) is estimated based on the MDRD equation, which assumes a steady state for creatinine as recommended by the National Kidney Disease Education Program in conjunction with the National Institutes of Health and the National Kidney Foundation. Clinical conditions in which it may be necessary to measure GFR by using clearance methods include extremes of age and body size, severe malnutrition or obesity, diseases of skeletal muscle, paraplegia or quadriplegia, vegetarian diet, rapidly changing kidney function, and calculation of the dose of potentially toxic drugs that are excreted by the kidneys. 34 Per NCEP ATP III Guidelines: Results lower than 40 mg/dL are suggestive of increased risk for coronary artery disease. Results > or=to 60 mg/dL are considered a negative risk factor. 35 Per NCEP ATP III Guidelines: Normal Population <130 Patients with medical conditions: CHD/DM Optimal: <100 Borderline high: 130-159 High: 160-189 Very high: >189 36 This sample is drawn by:JOLLY/DERRELL HAD COFFEE WITH CREAMER. Fastin hours This sample is drawn by:LS/TWIST TESTER HAD COFFEE WITH CREAMER. Fastin hours This sample is drawn by:LS/TWIST TESTER HAD COFFEE WITH CREAMER. Fastin hours 37 Concerning GFR Guidelines for Americans: Normal function or mild renal disease, if clinically at risk: >/=60 mL/min Moderately decreased: 30-59 Severely decreased: 15-29 Renal failure: <15 38 Concerning GFR Guidelines: Normal function or mild renal disease, if clinically at risk: >/=60 mL/min Moderately decreased: 30-59 Severely decreased: 15-29 Renal failure: <15 Glomerular Filtration Rate (GFR) is estimated based on the MDRD equation, which assumes a steady state for creatinine as recommended by the National Kidney Disease Education Program in conjunction with the National Institutes of Health and the National Kidney Foundation. Clinical conditions in which it may be necessary to measure GFR by using clearance methods include extremes of age and body size, severe malnutrition or obesity, diseases of skeletal muscle, paraplegia or quadriplegia, vegetarian diet, rapidly changing kidney function, and calculation of the dose of potentially toxic drugs that are excreted by the kidneys. 39 Per NCEP ATP III Guidelines: Results lower than 40 mg/dL are suggestive of increased risk for coronary artery disease. Results > or=to 60 mg/dL are considered a negative risk factor. 40 Per NCEP ATP III Guidelines: Normal Population <130 Patients with medical conditions: CHD/DM Optimal: <100 Borderline high: 130-159 High: 160-189 Very high: >189 41 AND DIET TEA COFFEE WITH CREAM AND SUGAR This sample is drawn by:KD/JAVASCRIPT WEB DEVELOPER 42 Per NCEP ATP III Guidelines: Results lower than 40 mg/dL are suggestive of increased risk for coronary artery disease. Results > or=to 60 mg/dL are considered a negative risk factor. 43 Per NCEP ATP III Guidelines: Normal Population <130 Patients with medical conditions: CHD/DM Optimal: <100 Borderline high: 130-159 High: 160-189 Very high: >189 44 Concerning GFR Guidelines for Americans: Normal function or mild renal disease, if clinically at risk: >/=60 mL/min Moderately decreased: 30-59 Severely decreased: 15-29 Renal failure: <15 45 Concerning GFR Guidelines: Normal function or mild renal disease, if clinically at risk: >/=60 mL/min Moderately decreased: 30-59 Severely decreased: 15-29 Renal failure: <15 Glomerular Filtration Rate (GFR) is estimated based on the MDRD equation, which assumes a steady state for creatinine as recommended by the National Kidney Disease Education Program in conjunction with the National Institutes of Health and the National Kidney Foundation. Clinical conditions in which it may be necessary to measure GFR by using clearance methods include extremes of age and body size, severe malnutrition or obesity, diseases of skeletal muscle, paraplegia or quadriplegia, vegetarian diet, rapidly changing kidney function, and calculation of the dose of potentially toxic drugs that are excreted by the kidneys. 46 ER This sample is drawn by:LS/TWIST TESTER HAD TWO CUPS COFFEE WITH NON DAIRY CREAM 47 Per NCEP ATP III Guidelines: Results lower than 40 mg/dL are suggestive of increased risk for coronary artery disease. Results > or=to 60 mg/dL are considered a negative risk factor. 48 Per NCEP ATP III Guidelines: Optimal: <100 Near optimal: 100-129 Borderline high: 130-159 High: 160-189 Very high: >189 49 Desirable: <130 Borderline High: 130-159 High: 160-189 Very high: 190 or greater 50 This sample is drawn by:KD/JAVASCRIPT WEB DEVELOPER 51 Per NCEP ATP III Guidelines: Results lower than 40 mg/dL are suggestive of increased risk for coronary artery disease. Results > or=to 60 mg/dL are considered a negative risk factor. 52 Per NCEP ATP III Guidelines: Optimal: <100 Near optimal: 100-129 Borderline high: 130-159 High: 160-189 Very high: >189 53 5.5 No visible hemolysis. 54 Concerning GFR Guidelines for Americans: Normal function or mild renal disease, if clinically at risk: >/=60 mL/min Moderately decreased: 30-59 Severely decreased: 15-29 Renal failure: <15 55 Concerning GFR Guidelines: Normal function or mild renal disease, if clinically at risk: >/=60 mL/min Moderately decreased: 30-59 Severely decreased: 15-29 Renal failure: <15 Glomerular Filtration Rate (GFR) is estimated based on the MDRD equation, which assumes a steady state for creatinine as recommended by the National Kidney Disease Education Program in conjunction with the National Institutes of Health and the National Kidney Foundation. Clinical conditions in which it may be necessary to measure GFR by using clearance methods include extremes of age and body size, severe malnutrition or obesity, diseases of skeletal muscle, paraplegia or quadriplegia, vegetarian diet, rapidly changing kidney function, and calculation of the dose of potentially toxic drugs that are excreted by the kidneys. 56 This sample is drawn by:JOLLY/DERRELL 57 Per NCEP ATP III Guidelines: Results lower than 40 mg/dL are suggestive of increased risk for coronary artery disease. Results > or=to 60 mg/dL are considered a negative risk factor. 58 Per NCEP ATP III Guidelines: Optimal: <100 Near optimal: 100-129 Borderline high: 130-159 High: 160-189 Very high: >189 59 Per NCEP ATP III Guidelines: Results lower than 40 mg/dL are suggestive of increased risk for coronary artery disease. Results > or=to 60 mg/dL are considered a negative risk factor. 60 Per NCEP ATP III Guidelines: Optimal: <100 Near optimal: 100-129 Borderline high: 130-159 High: 160-189 Very high: >189 61 SAMPLE BY LS/TWIST TESTER 62 Per NCEP ATP III Guidelines: Results lower than 40 mg/dL are suggestive of increased risk for coronary artery disease. Results > or=to 60 mg/dL are considered a negative risk factor. 63 Per NCEP ATP III Guidelines: Optimal: <100 Near optimal: 100-129 Borderline high: 130-159 High: 160-189 Very high: >189 64 SAMPLE TAKEN BY NB 65 PER NCEP ATP III GUIDELINES: RESULTS LOWER THAN 40 MG/DL ARE SUGGESTIVE OF INCREASED RISK FOR CORONARY ARTERY DISEASE. RESULTS > OR=TO 60 MG/DL ARE CONSIDERED A NEGATIVE RISK FACTOR. 66 PER NCEP ATP III GUIDELINES: OPTIMAL: <100 NEAR OPTIMAL: 100 - 129 BORDERLINE HIGH: 130 - 159 HIGH: 160 - 189 VERY HIGH: >189 67 INTERPRETATION OF CHOL-HDL RATIO CHD RISK FEMALE MALE VERY HIGH >8.3 >14.3 HIGH 5.6 - 8.3 6.7 - 14.3 AVERAGE 3.7 - 5.6 4.0 - 6.7 BELOW AVERAGE 2.5 - 3.7 2.7 - 4.0 PROTECTED <2.5 <2.7 Procedures Date Code Description Status 05/09/2018 99146 Admin Of Inj (Therapeutic Phrophylactic Or Diagnostic Completed Subq Inj 07/26/2017 52717 Admin Of Inj (Therapeutic Phrophylactic Or Diagnostic Completed Subq Inj 10/29/2015 58754 Measure Blood Oxygen Level Multiple Determinations Completed 10/29/2015 84930 Airway Inhalation Treatment Completed 08/29/2015 32741 Measure Blood Oxygen Level Single Determination Completed 05/02/2014 [id number] Colonoscopy Completed 10/09/2013 [id number] Mammogram Completed 06/30/2012 74264 Admin Of Inj (Therapeutic Phrophylactic Or Diagnostic Completed Subq Inj 06/16/2012 43060 Admin Of Inj (Therapeutic Phrophylactic Or Diagnostic Completed Subq Inj 06/16/2012 68301 Measure Blood Oxygen Level Single Determination Completed 12/08/2011 33147 Measure Blood Oxygen Level Single Determination Completed 11/25/2011 82737 Measure Blood Oxygen Level Single Determination Completed 11/18/2011 37771 Measure Blood Oxygen Level Single Determination Completed 07/28/2011 42804 Measure Blood Oxygen Level Single Determination Completed 06/02/2011 92195 Measure Blood Oxygen Level Single Determination Completed Encounters Type Date Location Provider Dx Diagnosis Office Visit 05/09/2018 Bola Bellamy, E78.00 Pure 11:00a N.P. hypercholesterolemia, unspecified J44.9 Chronic obstructive pulmonary disease, unspecified F41.1 Generalized anxiety disorder Z23 Encounter for immunization Z71.6 Tobacco abuse counseling F33.1 Major depressive disorder, recurrent, moderate Office Visit 12/07/2017 1:00p Bola Bellamy, Z00.00 Encntr for general N.P. adult medical exam w/o abnormal findings I10 Essential (primary) hypertension E78.00 Pure hypercholesterolemia, unspecified F41.1 Generalized anxiety disorder F17.210 Nicotine dependence, cigarettes, uncomplicated Office Visit 07/26/2017 Jennyfer Bryan E78.00 Pure hypercholesterolemia, 10:45a Mashelle, N.P. unspecified I10 Essential (primary) hypertension F41.1 Generalized anxiety disorder Z23 Encounter for immunization Office Visit 03/16/2017 Jennyfer Bryan E78.00 Pure hypercholesterolemia, 1:30p Mashelle, N.P. unspecified I10 Essential (primary) hypertension F41.1 Generalized anxiety disorder R53.83 Other fatigue Z11.59 Encounter for screening for other viral diseases Z72.89 Other problems related to lifestyle Office Visit 12/04/2016 Jennyfer Bryan E78.00 Pure hypercholesterolemia, 11:15a Mashelle, N.P. unspecified I10 Essential (primary) hypertension F41.1 Generalized anxiety disorder Z00.8 Encounter for other general examination Office Visit 08/31/2016 11:30a Bola Bellamy, E11.9 Type 2 diabetes N.P. mellitus without complications F41.1 Generalized anxiety disorder I10 Essential (primary) hypertension F33.1 Major depressive disorder, recurrent, moderate E78.00 Pure hypercholesterolemia, unspecified Office Visit 08/05/2016 10:30a Bola Bellamy, F33.1 Major depressive N.P. disorder, recurrent, moderate F41.1 Generalized anxiety disorder I10 Essential (primary) hypertension Z23 Encounter for immunization Office Visit 06/08/2016 10:30a Bola Bellamy, E11.9 Type 2 diabetes N.P. mellitus without complications I10 Essential (primary) hypertension F41.1 Generalized anxiety disorder F33.1 Major depressive disorder, recurrent, moderate Z23 Encounter for immunization Office Visit 01/28/2016 10:30a Bola Bellamy, F17.200 Nicotine dependence, N.P. unspecified, uncomplicated F41.1 Generalized anxiety disorder F33.1 Major depressive disorder, recurrent, moderate E78.0 Pure hypercholesterolemia E11.9 Type 2 diabetes mellitus without complications F17.200 Nicotine dependence, unspecified, uncomplicated I10 Essential (primary) hypertension Office Visit 10/29/2015 11:45a Bola Bellamy, N.P. R05 Cough F41.1 Generalized anxiety disorder J44.9 Chronic obstructive pulmonary disease, unspecified F17.200 Nicotine dependence, unspecified, uncomplicated Office Visit 08/29/2015 11:00a Bola Bellamy, J01.00 Acute maxillary N.P. sinusitis, unspecified R05 Cough Office Visit 07/24/2015 10:30a Jennyfer Bryan E78.0 Pure hypercholesterolemia Chayahelle, N.P. I10 Essential (primary) hypertension R53.83 Other fatigue Z23 Encounter for immunization Office Visit 03/21/2015 10:30a Bola Bellamy, 300.02 Anxiety Disorder N.P. Generalized 296.32 Depressive Disorder Major Recurrent Moderate Office Visit 02/19/2015 10:00a Bola Bellamy, 300.02 Anxiety Disorder N.P. Generalized 296.32 Depressive Disorder Major Recurrent Moderate 054.79 Herpes Simplex Other Office Visit 12/06/2014 2:00p Bola Bellamy, 300.02 Anxiety Disorder N.P. Generalized 296.32 Depressive Disorder Major Recurrent Moderate Office Visit 11/05/2014 11:30a Bola Bellamy, 300.02 Anxiety Disorder N.P. Generalized 296.32 Depressive Disorder Major Recurrent Moderate Office Visit 10/23/2014 1:30p Bola Bellamy, 300.02 Anxiety Disorder N.P. Generalized 296.32 Depressive Disorder Major Recurrent Moderate Office Visit 05/31/2014 Jennyfer Bryan V04.81 Need For Prophylactic 2:30p Bola, N.P. Vaccination & Inoculation/Influenza 300.02 Anxiety Disorder Generalized Office Visit 05/02/2014 10:30a Bola Bellamy, 300.02 Anxiety Disorder N.P. Generalized 054.79 Herpes Simplex Other Office Visit 02/15/2014 Jennyfer Bryan, 300.02 Anxiety Disorder 10:30a Bola, N.P. Generalized Office Visit 02/01/2014 Jennyfer Bryan, 272.0 Hypercholesterolemia Pure 10:45a Bola, N.P. 300.02 Anxiety Disorder Generalized 780.79 Malaise And Fatigue Other Office Visit 10/25/2013 11:00a Bola Bellamy, 719.43 Pain Joint Forearm N.P. Office Visit 09/29/2013 9:00a Bola Bellamy, 300.02 Anxiety Disorder N.P. Generalized 307.49 Sleep Disorder Other 719.43 Pain Joint Forearm Office Visit 07/27/2013 11:00a Bola Bellamy, 300.02 Anxiety Disorder N.P. Generalized 788.39 Incontinence Urinary Other 272.0 Hypercholesterolemia Pure V04.81 Need For Prophylactic Vaccination & Inoculation/Influenza Office Visit 02/14/2013 2:00p Bola Bellamy, 300.02 Anxiety Disorder N.P. Generalized 307.49 Sleep Disorder Other Office Visit 10/04/2012 10:15a Bola Bellamy, 300.02 Anxiety Disorder N.P. Generalized 272.0 Hypercholesterolemia Pure Office Visit 06/16/2012 9:00a Bola Bellamy, 305.1 Tobacco Use N.P. Disorder 300.02 Anxiety Disorder Generalized 296.32 Depressive Disorder Major Recurrent Moderate 496 COPD Airway Obstruction Chronic Not Class Elsewhere V04.81 Need For Prophylactic Vaccination & Inoculation/Influenza 272.0 Hypercholesterolemia Pure Office Visit 04/07/2012 10:00a Bola Bellamy, 692.6 Dermatitis Contact N.P. Due To Plants (Except Food) Office Visit 03/29/2012 1:45p Bola Bellamy, 692.6 Dermatitis Contact N.P. Due To Plants (Except Food) Office Visit 03/04/2012 9:15a Bola Bellamy, 692.6 Dermatitis Contact N.P. Due To Plants (Except Food) Office Visit 02/23/2012 9:45a Bola Bellamy, 692.6 Dermatitis Contact N.P. Due To Plants (Except Food) 782.9 Skin & Integumentary Tissue Other Symptoms Office Visit 02/02/2012 9:00a Bola Bellamy, 305.1 Tobacco Use N.P. Disorder 300.02 Anxiety Disorder Generalized 296.32 Depressive Disorder Major Recurrent Moderate Office Visit 12/08/2011 9:45a Bola Bellamy, N.P. 786.2 Cough 496 COPD Airway Obstruction Chronic Not Class Elsewhere 305.1 Tobacco Use Disorder 300.02 Anxiety Disorder Generalized Office Visit 11/25/2011 1:15p Bola Bellamy, N.P. 786.2 Cough 496 COPD Airway Obstruction Chronic Not Class Elsewhere Office Visit 11/18/2011 1:15p Bola Bellamy, N.P. 786.2 Cough 496 COPD Airway Obstruction Chronic Not Class Elsewhere Office Visit 11/03/2011 9:00a Bola Bellamy, 305.1 Tobacco Use N.P. Disorder 272.0 Hypercholesterolemia Pure 296.32 Depressive Disorder Major Recurrent Moderate 300.02 Anxiety Disorder Generalized Office Visit 08/18/2011 10:45a Jennyfer Bryan, 305.1 Tobacco Use Disorder Bola, N.P. Office Visit 07/28/2011 10:15a Jennyfer Bryan, 272.0 Hypercholesterolemia Pure Mashelle, N.P. 296.32 Depressive Disorder Major Recurrent Moderate 786.2 Cough 305.1 Tobacco Use Disorder Office Visit 06/02/2011 9:00a Colt Bellamyle, 296.32 Depressive Disorder N.P. Major Recurrent Moderate 300.02 Anxiety Disorder Generalized 272.0 Hypercholesterolemia Pure 305.1 Tobacco Use Disorder 786.2 Cough V04.81 Need For Prophylactic Vaccination & Inoculation/Influenza Office Visit 02/26/2011 10:45a Jennyfer Bryan Mashelle, 296.32 Depressive Disorder N.P. Major Recurrent Moderate 300.02 Anxiety Disorder Generalized 272.0 Hypercholesterolemia Pure Office Visit 11/27/2010 9:00a Jennyfer Bryan, 272.0 Hypercholesterolemia Pure Mashelle, N.P. 296.32 Depressive Disorder Major Recurrent Moderate 300.02 Anxiety Disorder Generalized Office Visit 11/12/2010 3:45p Colt Bellamyle, 296.32 Depressive Disorder N.P. Major Recurrent Moderate 300.02 Anxiety Disorder Generalized 305.1 Tobacco Use Disorder Office Visit 08/18/2010 3:15p Jennyfer Bryan Mashelle, 296.32 Depressive Disorder N.P. Major Recurrent Moderate 300.02 Anxiety Disorder Generalized 305.1 Tobacco Use Disorder Office Visit 08/06/2010 1:00p Jennyfer Bryan, 272.0 Hypercholesterolemia Pure Mashelle, N.P. 296.32 Depressive Disorder Major Recurrent Moderate 305.1 Tobacco Use Disorder 300.02 Anxiety Disorder Generalized V04.81 Need For Prophylactic Vaccination & Inoculation/Influenza Plan of Treatment 07/25/2018 - Bola Bryan, N.P.F41.9 Anxiety disorder, unspecifiedComments: pt presents as highly activated and anxious about current marital problems. no certain neuro deficitidentifiedpatient agrees to go to ER ([facility]) for further eval. daughter to drive pt. directly to ER
--- OUTSIDE RECORDS SUMMARY | 2018-07-26 11:29 | XMS REPORT | Continuity of Care Document ---
:1950 External Reference #:[id number] Author Name Bola Bryan, N.Marisa. Address [address] [place] [address] Care Team Providers Name Role Phone Bola Bryan NIke Care Team Information [employer] Sergeant Unavailable Payers Type Date Identification Numbers Payment Provider Subscriber Policy Number: [id number] [employer] Bárbara Chowdhury [place] PayID: [id number] [address] [address] [place] [address] Effective: 2015 Policy Number: Medicaid ### >12 Bárbara Chowdhury [place] [id number] PayID: [id number] [address] [place] [address] Advance Directives Description No Information Available Problems [...] Cancer, Cervix () Second Sister due to [place] () Third Sister due to Cancer, Unspecified [...] Hx Tablets 5mg 90tab 1 po qd [place], Chloride 2009 - s Mashelle, 08/06/ N.P. 2009 Alendronate 08/06/ Hx Tablets 70mg 12tab 1 po q [place], Sodium 2009 - s week Masbecky, 08/31/ N.P. 2017 Xanax 08/06/ Hx Tablets 0.5mg 30tab 1 po tid [place], 2009 - s Masbecky, 10/17/ N.P. 2013 Oxybutynin 08/06/ Hx Tablets ER 10mg 90tab 1 po qd [place], Chloride ER 2009 - 24HR s Mashelle, 09/08/ N.P. 2010 Amitriptyline 07/31/ Hx Tablets 10mg 30tab 1 po qhs [place], HCL 2009 - s Bola, 08/06/ N.P. 2009 Simvastatin 07/31/ Hx Tablets 80mg 90tab 1 po qd Irvin 2009 - s Bola, 02/26/ N.P. 2010 Citalopram 07/31/ Hx Tablets 40mg 90tab 1 by Dilip Bryanbromide 2009 - mouth Bola, 10/23/ every day N.P. 2014 Immunizations CPT Code Status Date Vaccine Lot # [id number] Given 05/09/2018 Influenza Vac, 3 Yrs & Older, Quadrivalent, [id number] [place] [address] Given 07/26/2017 Pneumococcal 23 Immunization Adult Or Immunosuppressed Patient 16779 Given 07/26/2017 Influenza Vac, 3 Yrs & Older, Quadrivalent, [id number] Split, Im Use 33384 Given 08/05/2016 Tdap (Adacel) Ages 7 And Above Only [id number] 67137 Given 06/08/2016 Influenza Vac, 3 Yrs & Older, Quadrivalent, [id number] Split, [place] Use 76634 Given 06/08/2016 Prevnar 13 Pneumococal Conjugate Vaccine [id number] 36566 Given 07/24/2015 Influenza Vac, 3 Yrs & Older, Quadrivalent, Split, Im Use Q2038 Given 05/31/2014 Fluzone Trivalent Immunization [id number] Q2038 Given 07/27/2013 Fluzone Trivalent Immunization 57597 Given 06/30/2012 Pneumococcal 23 Immunization Adult Or Immunosuppressed Patient Q2038 Given 06/16/2012 Fluzone Trivalent Immunization [id number] Q2038 Given 06/02/2011 Fluzone Trivalent Immunization [id number] 89530 Given 08/06/2010 Afluria Or Fluvirin Flu Vac Intramuscular [id number] Vital Signs Date Vital Result Comment 05/09/2018 10:53am Body Temperature 97.7 F Weight [...] High 20-99 11 Comprehensive Met Panel-[facility] 03/16/2017 [facility] Sodium 138 mmol/L 135- 146 12 Potassium [...] finding Antibody CBC With Auto Diff 03/16/2017 [facility] WBC 7.4 K/uL 4.1-11.0 RBC 5.03 M/uL [...] 0.1 K/uL 0.0-0.3 [facility] test [facility] 5.8 % 4.1-5.9 Comprehensive Metabolic [facility] Sodium 137 mmol/L 134-142 (CMP) Potassium 4.8 [...] Breanne Egfr >60 >60 18 Lipid 08/31/2016 [facility] Cholesterol 172 mg/dL 50-199 Triglycerides 84 mg/dL [...] >60 >60 24 Laboratory test finding 06/08/2016 [facility] Hemoglobin A1c 5.9 % 4.1-5.9 Laboratory test [facility] A1[facility] 6.0 % High 4.1- 5.9 25 Comprehensive Metabolic 01/28/2016 [facility] Sodium 139 mmol/L 134-142 ([facility]) Potassium 4.8 mmol/L 3.5-5.2 Chloride 100 mmol/L [...] mg/dL 20-99 29 Laboratory test finding 07/29/2015 [facility] Hemoglobin A1c 6.0 % High 4.1- 5.9 30 Comprehensive Metabolic 07/24/2015 [facility] Sodium 139 mmol/L 134-142 31 (CMP) Potassium [...] 20-99 35 CBC With Auto Diff 07/24/2015 [facility] WBC 8.4 K/uL 4.1-11.0 RBC 4.76 M/uL [...] 0.1 K/uL 0.0-0.3 Laboratory test finding 07/24/2015 [facility] TSH 1.77 uIU/mL 0.35-4.94 CBC With Auto Diff 02/01/2014 [facility] WBC 7.4 K/uL 4.1-11.0 36 RBC 5.09 [...] 3.0 ratio Low 3.7-5.6 VLDL 24 mg/dL 2- LDL (Calc) 97 mg/dL 20-129 58 Alt 20 U/L 3-42 Ast 17 U/L 8- Lipid Treatment 07/28/2011 [facility] Cholesterol 203 mg/dL High 50-199 Triglycerides 73 mg/dL 10-150 HDL 65 mg/dL 35-85 59 Chol/ HDL Ratio 3.1 ratio Low 3.7-5.6 VLDL 15 mg/dL 2- LDL (Calc) 123 mg/dL 20-129 60 Alt 20 U/L 5-45 Ast 21 U/L Lipid Treatment 11/27/2010 [facility] Cholesterol 173 mg/dL 50-199 61 Triglycerides 73 mg/dL 10-150 HDL 61 mg/dL 35-85 62 Chol/ HDL Ratio 2.8 ratio Low 3.7-5.6 VLDL 15 mg/dL 2- LDL (Calc) 97 mg/dL 20-129 63 Alt 22 U/L 5-45 Ast 20 U/L Lipid TX Panel 08/06/2010 [facility] (Do not Use) Ast 24 U/L - 64 [facility] [place] [address] [phone] Alt 24 U/L 5-45 Cholesterol 178 mg/dL 50-199 Triglycerides 120 mg/dL 10-150 HDL 61 mg/dL 35-85 65 LDL (Calc) 93 mg/dL 20-129 66 Chol/HDL Ratio 2.9 Ratio Low 3.7-5.6 67 VLDL 24 mg/dL 2- CBC With Auto Diff 08/06/2010 [facility] (Do not Use) WBC 6.0 K/ul 4.0- 10.9 [facility] [place] [address] [phone] RBC 4.73 M/ul 4.20-5.40 Hemoglobin 16.1 GM/dl [...] Use) TSH 2.27 uIU/ml 0.34 -5.60 finding [facility] [place], [place] [id number] [phone] 1 This sample is drawn by:DL/SMOKING TOBACCO PACKING MACHINE HAND 2 Updated reference range on new analyzer [...] high: >189 9 This sample is drawn by:JOLLY/SMOKING TOBACCO PACKING MACHINE HAND 10 Per NCEP ATP III Guidelines: Results [...] the kidneys. 25 This sample is drawn by:KD/IRRIGATION INSTALLATION SPECIALIST 26 Concerning GFR Guidelines for Americans: Normal [...] CREAMER. Fastin hours This sample is drawn by:JOLLY/SMOKING TOBACCO PACKING MACHINE HAND HAD COFFEE WITH CREAMER. Fastin hours This sample is drawn by:JOLLY/DERRELL HAD COFFEE WITH CREAMER. Fastin hours 37 [...] CREAM AND SUGAR This sample is drawn by:MARLIN/ITZ 42 Per NCEP ATP III Guidelines: Results [...] kidneys. 46 ER This sample is drawn by:JOLLY/SMOKING TOBACCO PACKING MACHINE HAND HAD TWO CUPS COFFEE WITH NON DAIRY [...] or greater 50 This sample is drawn by:MARLIN/ITZ 51 Per NCEP ATP III Guidelines: Results [...] the kidneys. 56 This sample is drawn by:JOLLY/SMOKING TOBACCO PACKING MACHINE HAND 57 Per NCEP ATP III Guidelines: Results [...] 160-189 Very high: >189 61 SAMPLE BY LS/SMOKING TOBACCO PACKING MACHINE HAND 62 Per NCEP ATP III Guidelines: Results [...] <2.7 Procedures Date Code Description Status 05/09/2018 34449 Admin Of Inj (Therapeutic Phrophylactic Or Diagnostic Completed Subq Inj 07/26/2017 05416 Admin Of Inj (Therapeutic Phrophylactic Or Diagnostic Completed Subq Inj 10/29/2015 56168 Measure Blood Oxygen Level Multiple Determinations Completed 10/29/2015 19879 Airway Inhalation Treatment Completed 08/29/2015 17499 Measure Blood Oxygen Level Single Determination Completed 05/02/2014 82665721 Colonoscopy Completed 10/09/2013 60244876 Mammogram Completed 06/30/2012 83067 Admin Of Inj (Therapeutic Phrophylactic Or Diagnostic Completed Subq Inj 06/16/2012 85906 Admin Of Inj (Therapeutic Phrophylactic Or Diagnostic Completed Subq Inj 06/16/2012 26089 Measure Blood Oxygen Level Single Determination Completed 12/08/2011 95499 Measure Blood Oxygen Level Single Determination Completed 11/25/2011 83442 Measure Blood Oxygen Level Single Determination Completed 11/18/2011 33310 Measure Blood Oxygen Level Single Determination Completed 07/28/2011 33912 Measure Blood Oxygen Level Single Determination Completed 06/02/2011 91887 Measure Blood Oxygen Level Single Determination Completed [...] unspecified R05 Cough Office Visit 07/24/2015 10:30a eJnnyfer Bryan E78.0 Pure hypercholesterolemia Chayahelle, N.P. I10 [...] Major Recurrent Moderate Office Visit 05/31/2014 Jennyfer Bryan, V04.81 Need For Prophylactic 2:30p Bola, N.P. Vaccination & Inoculation/Influenza 300.02 Anxiety Disorder Generalized Office Visit 05/02/2014 10:30a Bola Bellamy, 300.02 Anxiety Disorder N.P. Generalized 054.79 Herpes Simplex Other Office Visit 02/15/2014 Jennyfer Bryan 300.02 Anxiety Disorder 10:30a Bola, N.P. Generalized [...] Plants (Except Food) Office Visit 02/23/2012 9:45a oBla Bellamy, 692.6 Dermatitis Contact N.P. Due To [...] Disorder Generalized Office Visit 08/18/2011 10:45a Jennyfer Bryan 305.1 Tobacco Use Disorder [place], N.P. Office Visit 07/28/2011 10:15a Jennyfer Bryan, 272.0 Hypercholesterolemia Pure Coltle, N.P. 296.32 Depressive Disorder Major Recurrent Moderate 786.2 Cough 305.1 Tobacco Use Disorder Office Visit 06/02/2011 9:00a Bola Bellamy, 296.32 Depressive Disorder N.P. Major Recurrent Moderate 300.02 Anxiety Disorder Generalized 272.0 Hypercholesterolemia Pure 305.1 Tobacco Use Disorder 786.2 Cough V04.81 Need For Prophylactic Vaccination & Inoculation/Influenza Office Visit 02/26/2011 10:45a Bola Bellamy, 296.32 Depressive Disorder N.P. Major Recurrent Moderate 300.02 Anxiety Disorder Generalized 272.0 Hypercholesterolemia Pure Office Visit 11/27/2010 9:00a Jennyfer Bryan, 272.0 Hypercholesterolemia Pure Mashelle, N.P. 296.32 Depressive Disorder Major Recurrent Moderate 300.02 Anxiety Disorder Generalized Office Visit 11/12/2010 3:45p Bola Bellamy, 296.32 Depressive Disorder N.P. Major Recurrent Moderate 300.02 Anxiety Disorder Generalized 305.1 Tobacco Use Disorder Office Visit 08/18/2010 3:15p Bola Bellamy, 296.32 Depressive Disorder N.P. Major Recurrent Moderate 300.02 Anxiety Disorder Generalized 305.1 Tobacco Use Disorder Office Visit 08/06/2010 1:00p Jennyfer Bryan, 272.0 Hypercholesterolemia Pure Mashelle, N.P. 296.32 Depressive Disorder Major Recurrent Moderate 305.1 Tobacco Use Disorder 300.02 Anxiety Disorder Generalized V04.81 Need For Prophylactic Vaccination & Inoculation/Influenza Plan of Treatment 05/09/2018 - Bola Bryan, N.P.E78.00 Pure hypercholesterolemia, ssjshtwbfhwI95.9 Chronic obstructive pulmonary disease, bfsogwflzvjB07.1 Generalized anxiety awjttjzsK56 Encounter for mmgekptiqndzF44.6 Tobacco abuse ioftocxikxP00.1 Major depressive disorder, recurrent, moderateAllImmunizations/ Injections:Influenza Vac, 3 Yrs & Older, Quadrivalent, Split, Im Use
[2018-07-26 15:28] LABS: ABS Basophils 0.1 10^3/ul (0-0.2); ABS Eosinophils 0 10^3/ul (0-0.6); ABS Lymphocytes 1.4 10^3/ul (1.0-4.8); ABS Monocytes 0.6 10^3/ul (0-0.8); ABS Neutrophils 6.8 10^3/ul (1.5-7.7); ABS Nucleated RBC 0 10^3/ul; Eosinophil % 0.5 %; Hematocrit 50 % (35-47); Hemoglobin 17.2 g/dl (12.0-16.0); Mean Corpuscular HGB Conc 34 g/dl (31-36); Mean Corpuscular Hemoglobin 32 pg (27-31); Mean Corpuscular Volume 94 fL (80-97); Mean Platelet Volume 8.2 fL (7.4-10.4); Nucleated Red Blood Cells % 0.1; Platelet Count 265 10^3/ul (150-450); Red Blood Count 5.34 10^6/ul (4.00-5.40); Red Cell Distribution Width 14 % (10.5-15); White Blood Count 8.9 10^3/ul (3.5-10.8)
[2018-07-26 15:54] LABS: EGFR Non-African American 68.4 (>60)
--- NOTE | 2018-07-26 16:29 | ED ---
Complex/Multi-Sys Presentation - HPI Summary HPI Summary: Patient is a 68-year-old female who presents emergency department for evaluation of increasing confusion, memory loss, depression and decreased appetite over the last several months. Pt. brought to the ER by her daughter for evaluation. Past medical history only positive for depression. Patient currently seeing her PCP and is on pression anxiety medication but she is unsure of the names of his medications. Patient's daughter states that patient' s significant other recently moved back into her house and has been giving her worsening anxiety and depression. Patient denies suicidal or homicidal ideations. Patient also notes decrease in activity, increased sleep, occasional memory loss and confusion. She denies fevers, chills, chest pain, shortness breath, cough, abdominal pain, urinary symptoms, vomiting or diarrhea. Symptoms are moderate in severity. Patient did see her PCP yesterday and was referred to the ER for further evaluation. Patient notes her mother had a history of early dementia. Symptoms are moderate in severity. No current modifying factors. - History Of Current Complaint Chief Complaint: EDGeneral Time Seen by Provider: 07/26/18 15:53 Hx Obtained From: Patient, Family/Cleaner Touch Up Worker - Allergies/Home Medications Allergies/Adverse Reactions: Allergies Allergy/AdvReac Type Severity Reaction Status Date / Time No Known Allergies Allergy Verified 07/26/18 11:16 PMH/Surg Hx/FS Hx/Imm Hx Previously Healthy: Yes Infectious Disease History: No Infectious Disease History: Denies: Traveled Outside the [place] in Last 30 Days - Family History Known Family History: Positive: Non-Contributory - Social History Occupation: Retired Lives: With Family Review of Systems Constitutional: Negative Negative: Fever, Chills Eyes: Negative ENT: Negative Cardiovascular: Negative Respiratory: Negative Gastrointestinal: Negative Genitourinary: Negative Musculoskeletal: Negative Skin: Negative Neurological: Other - memory loss and confusion Positive: Depressed All Other Systems Reviewed And Are Negative: Yes Physical Exam Triage Information Reviewed: Yes Vital Signs On Initial Exam: Initial Vitals Temp Pulse Resp BP Pulse Ox 97.9 F 91 16 123/75 93 07/26/18 11:13 07/26/18 11:13 07/26/18 11:13 07/26/18 11:13 07/26/18 11:13 Vital Signs Reviewed: Yes Appearance: Positive: Well-Appearing - Pt. sitting on bed in NAD. Tearful at times. Daughter present. Skin: Positive: Warm, Dry Head/Face: Positive: Normal Head/Face Inspection Eyes: Positive: Normal, EOMI ENT: Positive: TMs normal Neck: Positive: Supple, Nontender Respiratory/Lung Sounds: Positive: Clear to Auscultation, Breath Sounds Present Cardiovascular: Positive: Normal, RRR Abdomen Description: Positive: Nontender, Soft Neurological: Positive: Normal, Alert, Oriented to Person Place, Time, CN Intact II-III, Normal Gait, Facial Symmetry, Speech Normal Psychiatric: Positive: Depressed - [place] Coma Scale Best Eye Response: 4 - Spontaneous Best Motor Response: 6 - Obeys Commands Best Verbal Response: 5 - Oriented Coma Scale Total: 15 Diagnostics - Vital Signs Vital Signs Temp Pulse Resp BP Pulse Ox 07/26/18 13:28 98.2 F 105 16 135/86 95 07/26/18 11:13 97.9 F 91 16 123/75 93 - Laboratory Lab Results: Lab Results 07/26/18 07/26/18 Range/Units 14:59 14:59 WBC 8.9 (3.5-10.8) 10^3/ul RBC 5.34 (4.00-5.40) 10^6/ul Hgb 17.2 H (12.0-16.0) g/dl Hct 50 H (35-47) % MCV 94 (80-97) fL MCH 32 H (27-31) pg MCHC 34 (31-36) g/dl RDW 14 (10.5-15) % Plt Count 265 (150-450) 10^3/ul MPV 8.2 (7.4-10.4) fL Neut % (Auto) 76.3 % Lymph % (Auto) 16.0 % [place] % (Auto) 6.5 % Eos % (Auto) 0.5 % Baso % (Auto) 0.7 % Absolute Neuts (auto) 6.8 (1.5-7.7) 10^3/ul Absolute Lymphs (auto) 1.4 (1.0-4.8) 10^3/ul Absolute Monos (auto) 0.6 (0-0.8) 10^3/ul Absolute Eos (auto) 0 (0-0.6) 10^3/ul Absolute Basos (auto) 0.1 (0-0.2) 10^3/ul Absolute Nucleated RBC 0 10^3/ul Nucleated RBC % 0.1 Sodium 136 (135-145) mmol/L Potassium 3.4 L (3.5-5.0) mmol/L Chloride 98 L (101-111) mmol/L Carbon Dioxide 29 (22-32) mmol/L Anion Gap 9 (2-11) mmol/L BUN 7 (6-24) mg/dL Creatinine 0.83 (0.51-0.95) mg/dL Est GFR ( Amer) 82.7 (>60) Est GFR (Non-Af Amer) 68.4 (>60) BUN/Creatinine Ratio 8.4 (8-20) Glucose 98 (70-100) mg/dL Calcium 10.0 (8.6-10.3) mg/dL Total Bilirubin 0.50 (0.2-1.0) mg/dL AST 16 (13-39) U/L ALT 16 (7-52) U/L Alkaline Phosphatase 94 (34-104) U/L Total Protein 7.8 (6.4-8.9) g/dL Albumin 4.6 (3.2-5.2) g/dL Globulin 3.2 (2-4) g/dL Albumin/Globulin Ratio 1.4 (1-3) Result Diagrams: 07/26/18 14:59 07/26/18 14:59 Lab Statement: Any lab studies that have been ordered have been reviewed, and results considered in the medical decision making process. Complex Multi-Symp Course/Dx Course Of Treatment: Patient presenting with ongoing depression, decreased appetite, memory loss and confusion over the last several months. She is afebrile with stable vital signs. She has no neurological deficits on exam. Basic labs were obtained. Did obtain head CT as well to rule out mass. CBC and CMP unremarkable other than mild elevation in hemoglobin, suspect dehydration and minimally low potassium of 3.4. Urinalysis is contaminated but does show nitrites and leukocytes. CT of brain is negative for acute findings, reading per radiology. We'll start patient with Keflex for suspected UTI. Results were discussed with patient and her daughter. Did offer psychiatric evaluation which patient declined at this time. Patient denies suicidal or homicidal ideations. Patient states she feels safe at home. Recommend patient be referred to neurology for further evaluation of possible early dementia. Also recommend close follow-up with PCP for possible change in depression medication. Patient's daughter states she is going to work on patient's living situation. Return to the ER if symptoms change or worsen. Patient and daughter understand and agree with plan. - Diagnoses Provider Diagnoses: Depression, UTI (urinary tract infection), Confusion Discharge - Sign-Out/Discharge Documenting (check all that apply): Patient Departure - Discharge Plan Condition: Good Disposition: HOME Prescriptions: Cephalexin CAP* [Keflex CAP*] 500 mg PO BID #20 cap Patient Education Materials: Urinary Tract Infection in Women (ED), Depression (ED), Depression (DC) Referrals: Bola Bryan NP [Primary Care Provider] - Heide Hernandez MD [Medical Doctor] - Additional Instructions: Call your PCP tomorrow for a close follow up appointment Recommend referral to neurology for further evaluation Take antibiotic as directed Increase fluids Return to the ER if symptoms change or worsen - Billing Disposition and Condition Condition: GOOD Disposition: Home
[2018-07-26 16:53] LABS: Urine Appearance Cloudy; Urine Blood 1+ (Negative); Urine Color Yellow; Urine Ketones Trace (Negative); Urine Protein Negative (Negative); Urine Red Blood Cell Trace(0-2/hpf) (Absent); Urine Specific Gravity 1.009 (1.010-1.030); Urine Urobilinogen Negative (Negative); Urine White Blood Cell 2+(11-20/hpf) (Absent)
[2018-07-26] MEDS ORDERED: Cephalexin CAP* 500 MG PO ONE (17:21)
[2018-07-26 17:38] VITALS: BP 123/76
--- NOTE | 2018-07-28 06:19 | PN ---
Progress Note - Progress Note Date of Service: 07/28/18 Note: patient preliminary urine culture grew Klebsiella pneumonia >100,000. patient placed on keflex. will wait for final culture for sensitivities.
== END 2018-07-26 17:37 | disposition home or self-care (01) ==
LOC: ED 11:10
DX: N39.0 Urinary tract infection, site not specified (principal); R41.0 Disorientation, unspecified; F32.9 Major depressive disorder, single episode, unspecified
CPT/HCPCS: 36415; 70450; 80053; 81003; 81015; 85025; 87077; 87086; 87186; 99283; A9270-GY